=== PATIENT | male | born 1935 | race Caucasian/White ===

== ENCOUNTER 2020-03-07 16:51 | Emergency (ER) | payer MEDICARE ==
[~2020-03-07] VITALS: Ht 177.8 cm; Wt 65.0 kg
[~2020-03-07 16:51] MED LIST: NAPROXEN500 MG PO
[2020-03-07 23:32] LABS: HEMATOCRIT 42.4 % (39.0-50.0); IMMATURE GRANULOCYTES 0.9 % (0.0-5.0); MEAN CELL VOLUME 75.6 fL CALC (80.0-100.0); MEAN CORPUSCULAR HGB 23.2 pG CALC (26.0-32.0); MEAN CORPUSCULAR HGB CONC 30.7 g/dL CAL (32.0-36.0); NEUT# 9.36 thou/uL (1.82-7.42); RED BLOOD COUNT 5.61 mill/uL (4.70-6.10); RED CELL DISTRI WIDTH 16.2 % (11.5-15.5)
[2020-03-07 23:47] LABS: BILIRUBIN, TOTAL 0.9 mg/dL (0.0-1.4); POTASSIUM 5.6 mmol/l (3.5-5.1)
[2020-03-08 01:52] VITALS: BP 128/88
== END 2020-03-08 01:52 | disposition short-term general hospital (02) ==
LOC: ED 16:51
PROVIDERS: Emergency Medicine
DX: N17.9 Acute kidney failure, unspecified (principal); E87.5 Hyperkalemia; R19.7 Diarrhea, unspecified